=== PATIENT | male | born 1970 | race Caucasian/White ===

== ENCOUNTER 2017-10-03 20:06 | Inpatient (IN) | payer MEDICAID ==
[2017-10-03] MEDS ORDERED: Ondansetron 4 MG/2 ML SDV IVPUSH ONE ×2 (20:46→22:33)
[2017-10-03] MEDS ORDERED: fentaNYL 100 MCG/2 ML SDV IVPUSH ONE (20:46)
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
[2017-10-03] MEDS ORDERED: Iopamidol 612 MG/ML 150 ML Bottle IV SCH (21:00)
[2017-10-03] MEDS: Sodium Chloride 0.9% 10 ML Syringe FLUSH PRN ×2 (21:00→21:45)
[2017-10-03] MEDS ORDERED: Sodium Chloride 0.9% 80 ML IV SCH (21:00)
[2017-10-03] MEDS ORDERED: Lactated Ringers 1,000 ML IV SCH (21:00)
[2017-10-03] MEDS ORDERED: HYDROmorphone 1 MG/ML Syringe IVPUSH ONE (22:33)
[2017-10-03] MEDS ORDERED: Ondansetron 4 MG/2 ML SDV IV PRN (22:42)
[2017-10-03] MEDS ORDERED: Dextrose 5%-Lactated Ringers 1,000 ML IV SCH (23:45)
[2017-10-04] MEDS: Ampicillin/Sulbactam Na 3 GM in Sodium Chloride 0.9% 100 ML IV SCH ×5 (00:08→21:00)
[2017-10-04] MEDS: HYDROmorphone 1 MG/ML Syringe IVPUSH PRN ×3 (00:23→05:15)
[2017-10-04] MEDS ORDERED: Meropenem 500 MG SDV ONE (05:11)
[2017-10-04] MEDS ORDERED: Bupivacaine 0.5%/EPINEPHrine 1:200,000 50 ML MDV ONE (05:11)
[2017-10-04] MEDS ORDERED: Midazolam 1 MG/ML 2 ML SDV ONE (05:15)
[2017-10-04] MEDS ORDERED: fentaNYL 250 MCG/5 ML SDV ONE (05:15)
[2017-10-04] MEDS ORDERED: Propofol 200 MG/20 ML SDV ONE (05:15)
[2017-10-04] MEDS ORDERED: Succinylcholine 200 MG/10 ML MDV ONE (05:15)
[2017-10-04] MEDS ORDERED: Dexamethasone 4 MG/ML SDV ONE (05:15)
[2017-10-04] MEDS ORDERED: Glycopyrrolate 0.2 MG/ML 5 ML MDV ONE (05:15)
[2017-10-04] MEDS ORDERED: Neostigmine Methylsulfate 1 MG/ML 5 ML Syringe ONE (05:15)
[2017-10-04] MEDS ORDERED: Ondansetron 4 MG/2 ML SDV ONE (05:15)
[2017-10-04] MEDS ORDERED: Rocuronium 50 MG/5 ML Vial ONE (05:15)
[2017-10-04] MEDS ORDERED: fentaNYL 100 MCG/2 ML SDV ONE (06:29)
[2017-10-04] MEDS ORDERED: hydrOXYzine HCl 100 MG/2 ML SDV IM ONE (06:50)
[2017-10-04] MEDS ORDERED: HYDROmorphone/Normal Saline 15 MG/30 ML PCA IV PRN (07:05)
[2017-10-04] MEDS ORDERED: Naloxone 0.4 MG/ML SDV IV PRN (07:05)
[2017-10-04] MEDS: Celecoxib 200 MG Cap PO SCH (09:22)
[2017-10-04] MEDS: Folic Acid 1 MG Tab PO SCH (09:22)
[2017-10-04] MEDS: Gabapentin 300 MG Cap PO SCH ×3 (09:22→20:52)
[2017-10-04] MEDS: traMADol 50 MG Tab PO SCH ×2 (09:26→20:52)
[2017-10-04] MEDS ORDERED: Aztreonam/Dextrose-Water 1 GM in Premix Bag 1 BAG IV SCH (11:00)
[2017-10-04] MEDS: Dextrose 5%-Lactated Ringers 1,000 ML IV SCH ×2 (14:40→20:53)
[2017-10-05] MEDS: Ampicillin/Sulbactam Na 3 GM in Sodium Chloride 0.9% 100 ML IV SCH ×4 (03:07→21:01)
[2017-10-05] MEDS: Dextrose 5%-Lactated Ringers 1,000 ML IV SCH (03:08)
[2017-10-05] MEDS ORDERED: Dextrose 5%-Lactated Ringers 1,000 ML IV SCH (06:52)
[2017-10-05] MEDS: Celecoxib 200 MG Cap PO SCH (07:21)
--- NOTE | 2017-10-05 07:22 | PCM.SURGPN ---
- General Info Date of Service: 10/05/17 Date of Surgery/Procedure: 10/04/17 POD#: 1 Post-Op Diagnosis: acute appendicitis Functional Status: Reports: Pain Controlled, Tolerating Diet, Ambulating, Urinating - Review of Systems General: Reports: No Symptoms HEENT: Reports: No Symptoms Pulmonary: Reports: No Symptoms Cardiovascular: Reports: No Symptoms Gastrointestinal: Reports: Flatus Genitourinary: Reports: No Symptoms Musculoskeletal: Reports: No Symptoms Skin: Reports: No Symptoms Neurological: Reports: No Symptoms Psychiatric: Reports: No Symptoms Systems Review Comment:: Patient reports that he is feeling well today. Has been up ambulating. Tolerated clear liquids. Notes flatus but no BM. - Patient Data Vitals - Most Recent: Last Vital Signs Temp 35.7 C 10/05/17 03:05 Pulse 75 10/05/17 03:05 Resp 18 10/05/17 03:05 BP 135/82 10/05/17 03:05 Pulse Ox 99 10/05/17 03:05 Weight - Most Recent: 101.151 kg I&O - Last 24 Hours: Intake & Output 10/04/17 10/05/17 10/05/17 22:59 06:59 14:59 Intake Total 2868 2752 Output Total 1810 1085 Balance 1058 1667 Stanley Results Last 24 Hrs: Microbiology 10/04/17 06:28 Gram Stain - Final Appendix - Other Wound Culture - Preliminary Med Orders - Current: Current Medications Bisacodyl (Dulcolax) 10 mg PO BID [facility] Celecoxib (Celebrex) 200 mg PO DAILY@0800 [facility] Last Admin: 10/04/17 09:22 Dose: 200 mg Docusate Sodium (Colace) 100 mg PO BID [facility] Folic Acid (Folic Acid) 1 mg PO DAILY [facility] Last Admin: 10/04/17 09:22 Dose: 1 mg Gabapentin (Neurontin) 900 mg PO TID [facility] Last Admin: 10/04/17 20:52 Dose: 900 mg Ampicillin Sodium/Sulbactam (Sodium 3 gm/ Sodium Chloride) 100 mls @ 200 mls/ hr IV Q6H [facility] Last Admin: 10/05/17 03:07 Dose: 200 mls/hr Dextrose/Lactated Ringer's (Dextrose 5%-Lactated Ringers) 1,000 mls @ 100 mls/ hr IV ASDIRECTED [facility] Ondansetron HCl (Zofran) 4 mg IV Q4H PRN PRN Reason: Nausea/Vomiting Oxycodone/Acetaminophen (Percocet 325-5 Mg) 1 - 2 tab PO Q4H PRN PRN Reason: paiin Sodium Chloride (Saline Flush) 10 ml FLUSH ASDIRECTED PRN PRN Reason: Keep Vein Open Last Admin: 10/03/17 21:45 Dose: 10 ml Tramadol HCl (Ultram) 100 mg PO BID [facility] Last Admin: 10/04/17 20:52 Dose: 100 mg Varenicline (Chantix) 1 mg PO BIDMEALS [facility] Last Admin: 10/04/17 17:12 Dose: 1 mg Discontinued Medications Bupivacaine HCl/Epinephrine Bitart (Marcaine 0.5%/Epinephrine 1:200,000) Confirm Administered Dose 50 ml .ROUTE .STK-MED ONE Stop: 10/04/17 05:12 Last Admin: 10/04/17 06:25 Dose: 20 ml Dexamethasone (Dexamethasone) Confirm Administered Dose 4 mg .ROUTE .STK-MED ONE Stop: 10/04/17 05:16 Fentanyl (Sublimaze) 50 mcg IVPUSH ONETIME ONE Stop: 10/03/17 20:47 Last Admin: 10/03/17 21:03 Dose: 50 mcg Fentanyl (Sublimaze) Confirm Administered Dose 250 mcg .ROUTE .STK-MED ONE Stop: 10/04/17 05:16 Fentanyl (Sublimaze) Confirm Administered Dose 100 mcg .ROUTE .STK-MED ONE Stop: 10/04/17 06:30 Glycopyrrolate (Robinul) Confirm Administered Dose 1 mg .ROUTE .STK-MED ONE Stop: 10/04/17 05:16 Hydromorphone HCl (Dilaudid) 1 mg IVPUSH ONETIME ONE Stop: 10/03/17 22:34 Last Admin: 10/03/17 22:54 Dose: 1 mg Hydromorphone HCl (Dilaudid) 1 mg IVPUSH Q1H PRN PRN Reason: Pain Last Admin: 10/04/17 05:15 Dose: 1 mg Hydromorphone HCl (Dilaudid Dyslexia Teacher 15 Mg In Ns 30 Ml) 0 mg IV ASDIRECTED PRN; Protocol PRN Reason: 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 Last Admin: 10/04/17 07:11 Dose: 0.4 mg Hydroxyzine HCl (Vistaril) 100 mg IM ONETIME ONE Stop: 10/04/17 06:51 Last Admin: 10/04/17 07:00 Dose: 100 mg Lactated Ringer's (Ringers, Lactated) 1,000 mls @ 999 mls/hr IV ASDIRECTED [facility] Last Admin: 10/03/17 21:10 Dose: 999 mls/hr Sodium Chloride (Normal Saline) 80 mls @ 3 mls/sec IV ASDIRECTED [facility] Last Admin: 10/03/17 21:45 Dose: 3 mls/sec Ampicillin Sodium/Sulbactam (Sodium 3 gm/ Sodium Chloride) 100 mls @ 200 mls/ hr IV Q6H [facility] Last Admin: 10/04/17 05:07 Dose: 200 mls/hr Aztreonam 1 gm/ Sodium (Chloride) 50 mls @ 100 mls/hr IV Q12H [facility] Last Admin: 10/04/17 01:21 Dose: 100 mls/hr Dextrose/Lactated Ringer's (Dextrose 5%-Lactated Ringers) 1,000 mls @ 125 mls/ hr IV ASDIRECTED [facility] Last Admin: 10/03/17 23:58 Dose: 125 mls/hr Aztreonam/Dextrose 1 gm/ (Premix) 50 mls @ 100 mls/hr IV Q12H TAO Dextrose/Lactated Ringer's (Dextrose 5%-Lactated Ringers) 1,000 mls @ 175 mls/ hr IV ASDIRECTED [facility] Last Admin: 10/05/17 03:08 Dose: 175 mls/hr Iopamidol (Isovue-300 (61%)) 150 ml IV . DIRECTED [facility] Last Admin: 10/03/17 21:46 Dose: 150 ml Meropenem (Merrem) Confirm Administered Dose 500 mg .ROUTE .STK-MED ONE Stop: 10/04/17 05:12 Midazolam HCl (Versed 1 Mg/Ml) Confirm Administered Dose 2 mg .ROUTE .STK-MED ONE Stop: 10/04/17 05:16 Naloxone HCl (Narcan) 0.1 mg IV ASDIRECTED PRN PRN Reason: decreased respiratory rate Neostigmine Methylsulfate (Neostigmine) Confirm Administered Dose 5 mg .ROUTE .STK-MED ONE Stop: 10/04/17 05:16 Ondansetron HCl (Zofran) 4 mg IVPUSH ONETIME ONE Stop: 10/03/17 20:47 Last Admin: 10/03/17 21:00 Dose: 4 mg Ondansetron HCl (Zofran) 4 mg IVPUSH ONETIME ONE Stop: 10/03/17 22:34 Last Admin: 10/03/17 22:51 Dose: 4 mg Ondansetron HCl (Zofran) Confirm Administered Dose 4 mg .ROUTE .STK-MED ONE Stop: 10/04/17 05:16 Propofol (Diprivan 20 Ml) Confirm Administered Dose 200 mg .ROUTE .STK-MED ONE Stop: 10/04/17 05:16 Rocuronium [place] (Zemuron) Confirm Administered Dose 50 mg .ROUTE .STK-MED ONE Stop: 10/04/17 05:16 Succinylcholine Chloride (Quelicin) Confirm Administered Dose 200 mg .ROUTE .STK -MED ONE Stop: 10/04/17 05:16 - Exam Wound/Incisions: Dressing Dry and Intact, Drainage (PEDRO with serosanguineous output) General: Alert, Oriented, Cooperative, No Acute Distress HEENT: Pupils Equal, Pupils Reactive Neck: Supple, Trachea Midline Lungs: Clear to Auscultation, Normal Respiratory Effort Cardiovascular: Regular Rate, Regular Rhythm GI/Abdominal Exam: Normal Bowel Sounds, Soft, Tender (RUQ with palpation) Extremities: Normal Inspection Skin: Warm, Dry, Intact Neurological: No New Focal Deficit Psy/Mental Status: Alert, Normal Affect, Normal Mood - Problem List Review Problem List Initiated/Reviewed/Updated: Yes - My Orders Last 24 Hours: Active Orders 24 hr Category Date Time Status Patient Status [ADT] Routine ADT 10/04/17 08:14 Active Ambulate [RC] ASDIRECTED Care 10/04/17 08:14 Active Dorsiflex/Plantar flex x 10 [RC] QSHIFT Care 10/04/17 08:14 Active Ruiz Catheter Insertion [Insert Urinary Catheter] [OM. Care 10/04/17 08:30 Ordered PC] Q24H Head of Bed Elevation [RC] CONTINUOUS Care 10/04/17 08:14 Active May Shower [RC] ASDIRECTED Care 10/05/17 06:56 Active Pneumonia Education [RC] UPON Care 10/04/17 08:14 Active RT Incentive Spirometry [RC] Q1HMD Care 10/04/17 08:14 Active Surgical Drains [Drain Management] [RC] ASDIRECTED Care 10/04/17 08:32 Active Turn, Cough, Deep Breathe [RC] Q1HWA Care 10/04/17 08:14 Active Up to Chair [RC] TIDMEALS Care 10/04/17 08:14 Active Respiratory Care Assess and Treatment [CONS] Routine Cons 10/04/17 08:14 Active Clear Liquid Diet [DIET] Diet 10/04/17 Dinner Active Full Liquid Diet [DIET] Diet 10/05/17 Breakfast Ordered Regular Diet [DIET] Diet 10/05/17 Dinner Active CULTURE ANAEROBIC [RM] Stat Lab 10/04/17 06:28 Results CULTURE WOUND + SMEAR [RM] Routine Lab 10/04/17 06:28 Results Acetaminophen/oxyCODONE [Percocet 325-5 MG] Med 10/05/17 06:56 Active 1 - 2 tab PO Q4H PRN Ampicillin/Sulbactam Na [Unasyn] 3 gm Med 10/04/17 10:00 Active Sodium Chloride 0.9% [Normal Saline] 100 ml IV Q6H Bisacodyl [Dulcolax] Med 10/05/17 09:00 Active 10 mg PO BID Celecoxib [CeleBREX] Med 10/04/17 08:00 Active 200 mg PO DAILY@0800 Dextrose 5%-Lactated Ringers 1,000 ml Med 10/05/17 06:52 Active IV ASDIRECTED Docusate Sodium [Colace] Med 10/05/17 09:00 Active 100 mg PO BID Folic Acid Med 10/04/17 09:00 Active 1 mg PO DAILY Gabapentin [Neurontin] Med 10/04/17 09:00 Active 900 mg PO TID Varenicline [Chantix] Med 10/04/17 09:00 Active 1 mg PO BIDMEALS traMADol [Ultram] Med 10/04/17 09:00 Active 100 mg PO BID Abdominal Binder [OM.PC] Per Unit Routine Oth 10/04/17 08:25 Ordered Oral Care [OM.PC] BID Oth 10/04/17 08:15 Ordered Oral Care [OM.PC] BID Oth 10/05/17 08:15 Ordered Remove Dressing [OM.PC] Routine Oth 10/05/17 06:56 Ordered Medication Orders Bisacodyl (Dulcolax) 10 mg PO BID [facility] Celecoxib (Celebrex) 200 mg PO DAILY@0800 [facility] Last Admin: 10/04/17 09:22 Dose: 200 mg Docusate Sodium (Colace) 100 mg PO BID [facility] Folic Acid (Folic Acid) 1 mg PO DAILY [facility] Last Admin: 10/04/17 09:22 Dose: 1 mg Gabapentin (Neurontin) 900 mg PO TID [facility] Last Admin: 10/04/17 20:52 Dose: 900 mg Admin: 10/04/17 14:38 Dose: 900 mg Admin: 10/04/17 09:22 Dose: 900 mg Ampicillin Sodium/Sulbactam (Sodium 3 gm/ Sodium Chloride) 100 mls @ 200 mls/ hr IV Q6H [facility] Last Admin: 10/05/17 03:07 Dose: 200 mls/hr Admin: 10/04/17 21:00 Dose: 200 mls/hr Admin: 10/04/17 17:11 Dose: 200 mls/hr Admin: 10/04/17 10:13 Dose: 200 mls/hr Dextrose/Lactated Ringer's (Dextrose 5%-Lactated Ringers) 1,000 mls @ 100 mls/ hr IV ASDIRECTED [facility] Ondansetron HCl (Zofran) 4 mg IV Q4H PRN PRN Reason: Nausea/Vomiting Oxycodone/Acetaminophen (Percocet 325-5 Mg) 1 - 2 tab PO Q4H PRN PRN Reason: paiin Sodium Chloride (Saline Flush) 10 ml FLUSH ASDIRECTED PRN PRN Reason: Keep Vein Open Last Admin: 10/03/17 21:45 Dose: 10 ml Admin: 10/03/17 21:00 Dose: 10 ml Tramadol HCl (Ultram) 100 mg PO BID [facility] Last Admin: 10/04/17 20:52 Dose: 100 mg Admin: 10/04/17 09:26 Dose: 100 mg [facility]) [facility] Last Admin: 10/04/17 17:12 Dose: 1 mg Admin: 10/04/17 09:27 Dose: 1 mg - Assessment Assessment (Free Text/Narrative):: S/p laparoscopic appendectomy - Plan Plan (Free Text/Narrative):: -Full liquid diet for breakfast. Can advance to regular for dinner. -May shower today. -Remove dressing today. -Percocet 325-5 mg 1-2 tabs PO q 4 hours prn for pain. -Dulcolax 10 mg PO BID -Colace 100 mg PO BID -Decrease IV to 100 mL/hr.
[2017-10-05] MEDS: Folic Acid 1 MG Tab PO SCH (08:58)
[2017-10-05] MEDS: Bisacodyl 5 MG Tab PO SCH ×2 (08:58→21:00)
[2017-10-05] MEDS: Docusate Sodium 100 MG Cap PO SCH ×2 (08:58→21:01)
[2017-10-05] MEDS: Gabapentin 300 MG Cap PO SCH ×3 (08:58→20:59)
[2017-10-05] MEDS: Acetaminophen/oxyCODONE 325-5 MG Tab PO PRN ×4 (09:05→23:42)
[2017-10-05] MEDS: traMADol 50 MG Tab PO SCH ×2 (09:06→20:58)
[2017-10-05] MEDS ORDERED: Magnesium Citrate Solution 296 ML Bottle PO ONE (17:00)
[2017-10-06] MEDS: Ampicillin/Sulbactam Na 3 GM in Sodium Chloride 0.9% 100 ML IV SCH ×2 (03:26→09:38)
[2017-10-06] MEDS: Acetaminophen/oxyCODONE 325-5 MG Tab PO PRN ×2 (06:53→12:23)
[2017-10-06] MEDS: Celecoxib 200 MG Cap PO SCH (09:24)
[2017-10-06] MEDS: Folic Acid 1 MG Tab PO SCH (09:26)
[2017-10-06] MEDS: Gabapentin 300 MG Cap PO SCH (09:26)
[2017-10-06] MEDS: Docusate Sodium 100 MG Cap PO SCH (09:29)
[2017-10-06] MEDS: Bisacodyl 5 MG Tab PO SCH (09:30)
[2017-10-06] MEDS: traMADol 50 MG Tab PO SCH (09:38)
--- NOTE | 2017-10-08 13:09 | OR ---
DATE OF PROCEDURE: 10/04/2017 PREOPERATIVE DIAGNOSIS: Acute appendicitis. POSTOPERATIVE DIAGNOSES: Perforated appendicitis with inflammation involving cecal base and pericolonic abscess. OPERATIVE PROCEDURES: 1. Diagnostic laparoscopy with. a. Partial cecectomy including removal of overlying appendix (19631). b. Drainage of pericolonic abscess ([id number]). ANESTHESIA: General. 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 Plan is to proceed with a diagnostic laparoscopy, laparotomy if necessary, and appendectomy with other procedures potentially as deemed required during the operative findings. Potential risks including bleeding, infection, leaks from any GI tract closures, possibility for postoperative abscess or other additional infectious complications occurring were reviewed and the patient wishes to proceed. DETAILS OF PROCEDURE: The patient was taken to the operating room and placed in a supine position. After general endotracheal anesthesia was induced, a Ruiz catheter was inserted and the abdomen prepped and draped. Three fingerbreadths superior to the left of the umbilicus, a transverse incision was made and peritoneal cavity entered under direct vision with an Optiview trocar and inflated to 15 mmHg pressure with CO2. Laparoscope was reinserted. No underlying trocar insertion site injuries were seen. Following this, eventually 4 additional trocars were placed. One extra trocar in this case was used as opposed to the usual number to help retract the omentum. As one approached the cecum, there was some obvious purulence present. This was located in the pericolic gutter running upward along the right side of the abdomen. This abscess was then broken into and the fluid evacuated. The patient was noted to have an acute appendicitis with a quite a bit of inflammation extending onto the cecal base making that area somewhat thickened and unsuitable for anastomosis. Given this, the mesoappendix was initially divided with Harmonic scalpel and this allowed upward mobilization of the end of the cecum to the point where the staple line would be going across relatively the inflamed tissue and the attached overlying appendix were then excised using 2 firings of the PRANAV purple load. That area was reinforced with some fibrin sealant. At this point, no further problems were noted of the appendix and cecal base and then delivered from the field and a Reji-Graf drain was taken through the area of the trocar site in the left flank and across the cecal staple line and from there into the pelvis. The trocars were removed. The fascia of 12 mm trocar sites were closed with 0 Vicryl stitch and skin with a 4-0 Vicryl skin stitch. Dressing was applied. The patient was taken to the recovery room in satisfactory condition. Brad Porter MD /[id number]
--- NOTE | 2017-10-16 13:37 | DISCH ---
FINAL DIAGNOSES: 1. Perforated appendicitis with inflammation extending to the cecal base and associated pericolonic abscess. 2. History of tobacco abuse. 3. History of wrist fracture. OPERATIVE PROCEDURES: This was done on 10/04 diagnostic laparoscopy with a particial cecectomy including removal of overlying appendix and the drainage of the pericolonic abscess. HOSPITAL COURSE: This is a 47-year-old male presenting with a picture of acute appendicitis, who was admitted overnight with IV antibiotics, hydration and underwent diagnostic laparoscopy on 10/04 and was found to have a perforated appendicitis with inflammation extending onto the cecum. The immediate cecal base was felt to be unsafe for stapling. Given this, a partial cecectomy was accomplished. The abscess adjacent to the cecum and this pericolonic abscess was also drained. Postoperatively, the patient had no major problems, he advance up to a regular diet and oral pain medication. Continue his home medications plus Percocet 5/325 mg 1 to 2 tabs q.4 hours p.r.n. pain, #40, and Augmentin 875 mg p.o. b.i.d. x5 days. FOLLOWUP: Follow up with Yolis Willis and Dr. Brad Porter, at [facility] next week.
== END 2017-10-06 13:25 | disposition home or self-care (01) | DRG 331 ==
LOC: JP.ED 20:06 → JP.MS 22:42
PROVIDERS: ADMIT Surgery; ATTEND Surgery
PROC: 0DTJ4ZZ Resection of Appendix, Percutaneous Endoscopic Approach (ICD-10-PCS; principal; 2017-10-04)
PROC: 0DBH4ZZ Excision of Cecum, Percutaneous Endoscopic Approach (ICD-10-PCS; 2017-10-04)
PROC: 0W9G4ZX Drainage of Peritoneal Cavity, Percutaneous Endoscopic Approach, Diagnostic (ICD-10-PCS; 2017-10-04)
DX: K35.3 Acute appendicitis with localized peritonitis (principal); L40.9 Psoriasis, unspecified; Z90.01 Acquired absence of eye; Z96.659 Presence of unspecified artificial knee joint; Z87.891 Personal history of nicotine dependence
CPT/HCPCS: 36415; 74177; 80053; 81001; 83605; 83690; 84484; 85025; 87070; 87075; 87077; 87186; 87205; 88304; 94762; 96361; 96374; 96375; 99285-25; A9270-GY; J0295; J0330; J1100; J1170; J2185; J2250; J2405; J2704; J2710; J3010; J3410; J7030; J7042; J7050; J7120; S0073

== ENCOUNTER 2022-05-03 08:14 | Day surgery (SDC) | payer MEDICAID, OTHER ==
[2022-05-03] MEDS ORDERED: Propofol 200 MG/20 ML SDV ONE (08:30)
[2022-05-03] MEDS ORDERED: Midazolam 1 MG/ML 2 ML SDV ONE (08:30)
[2022-05-03] MEDS ORDERED: fentaNYL 50 MCG/ML SDV ONE (08:30)
[2022-05-03] MEDS ORDERED: Lactated Ringers 1,000 ML IV SCH (09:15)
== END 2022-05-03 12:30 | disposition home or self-care (01) ==
LOC: JP.SDS 08:14
PROVIDERS: ATTEND Student in an Organized Health Care Education/Training Program
DX: Z12.11 Encounter for screening for malignant neoplasm of colon (principal); F17.200 Nicotine dependence, unspecified, uncomplicated; J43.9 Emphysema, unspecified; Z90.49 Acquired absence of other specified parts of digestive tract; Z79.899 Other long term (current) drug therapy
CPT/HCPCS: 45378; J2250; J2704; J3010; J7120

== ENCOUNTER 2023-05-27 02:30 | Emergency (ER) | payer MEDICAID ==
[2023-05-27] MEDS ORDERED: Lidocaine 1% with EPINEPHrine 1:100,000 50 ML MDV INJECT ONE (03:11)
[2023-05-27] MEDS ORDERED: Diphtheria,Pertussis(Acell),Tetanus Vaccine 0.5 ML Syringe IM ONE (04:07)
== END 2023-05-27 04:13 | disposition home or self-care (01) ==
LOC: JP.ED 02:30
DX: S61.216A Laceration without foreign body of right little finger without damage to nail, initial encounter (principal); I10 Essential (primary) hypertension; Z87.891 Personal history of nicotine dependence; Z86.16 Personal history of COVID-19; Z23 Encounter for immunization; W20.8XXA Other cause of strike by thrown, projected or falling object, initial encounter; Y92.009 Unspecified place in unspecified non-institutional (private) residence as the place of occurrence of the external cause
CPT/HCPCS: 12002; 90471; 99282-25